=== PATIENT | male | born 1935 | race African-American/Black ===

== ENCOUNTER 2016-10-03 16:28 | Emergency (ER) | payer OTHER, MEDICARE ==
[2016-10-03] MEDS ORDERED: HYDRALAZINE HCL 10 MG TABLET PO ONE (18:14)
--- NOTE | 2016-10-03 18:54 | ER Document Report ---
ED General - General Time seen by provider: 18:45 Mode of Arrival: Medic Information source: Patient TRAVEL OUTSIDE OF THE U.S. IN LAST 30 DAYS: No - HPI Onset: Other - see HPI note Associated symptoms: None <ZOË PARSON - Last Filed: 10/03/16 19:44> <NADER RAYMOND - Last Filed: 10/04/16 01:04> - General Chief Complaint: Blood Pressure Problem Stated Complaint: BLOOD PRESSURE CONCERNS Notes: Patient is a 81-year-old male presents the emergency department from [facility] for hypertension. Patient states that he thought he was going for an eye exam to get glasses but instead he had his scrotum checked from a previous vasectomy procedure. Patient states he is confused of why he is here and did not want to come to the emergency department. Patient is oriented to place, year, month, and president. Patient states that his blood pressure is always high and usually runs in the 180s over 90s-100s. Patient does not want an IV or other care and instead would like to return to his home at [place]. Patient has no known allergies. Patient understands to return to the emergency department if he does want to receive care. Patient takes at this hydralazine for his hypertension and was given medicine emergency department. Patient's blood pressure has come down to his baseline with this medication. (ZOË PARSON) - Related Data Allergies/Adverse Reactions: No Known Allergies Allergy (Verified 01/05/14 08:24) Past Medical History - General Information source: Patient - Social History Lives with: [facility] Family History: None - Past Medical History Cardiac Medical History: Reports: Hx Hypertension Pulmonary Medical History: Reports: Hx Bronchitis, Hx COPD Endocrine Medical History: Reports: Hx Diabetes Mellitus Type 2 Past Surgical History: Reports: Hx Cholecystectomy, Hx Orthopedic Surgery - right ankle reduction, Hx Testicular Surgery - vasectomy - Immunizations Hx Diphtheria, Pertussis, Tetanus Vaccination: Yes <ZOË PARSON - Last Filed: 10/03/16 19:44> - Social History Smoking Status: Unknown if Ever Smoked Family History: Reviewed & Not Pertinent <NADER RAYMOND - Last Filed: 10/04/16 01:04> Review of Systems - Review of Systems Constitutional: No symptoms reported EENT: No symptoms reported Cardiovascular: No symptoms reported Respiratory: No symptoms reported Gastrointestinal: No symptoms reported Genitourinary: No symptoms reported Male Genitourinary: No symptoms reported Musculoskeletal: No symptoms reported Skin: No symptoms reported Hematologic/Lymphatic: No symptoms reported Neurological/Psychological: No symptoms reported -: Yes All other systems reviewed and negative <ZOË PARSON - Last Filed: 10/03/16 19:44> Physical Exam - Vital signs Interpretation: Hypertensive - General General appearance: Appears well, Alert - HEENT Head: Normocephalic, Atraumatic Eyes: Normal, Other - Left eye has a cataract Pupils: PERRL Mucous membranes: Moist - Respiratory Respiratory status: No respiratory distress Chest status: Nontender Breath sounds: Normal Chest palpation: Normal - Cardiovascular Rhythm: Regular Heart sounds: Normal auscultation Murmur: No - Abdominal Inspection: Normal Distension: No distension Bowel sounds: Normal Tenderness: Nontender Organomegaly: No organomegaly - Back Back: Normal, Nontender - Extremities General upper extremity: Normal inspection, Normal ROM, Normal strength General lower extremity: Normal inspection, Normal ROM, Normal strength - Neurological Neuro grossly intact: Yes Cognition: Normal Orientation: AAOx4 Sa[place]ra Coma Scale Eye Opening: Spontaneous [place] Coma Scale Verbal: Oriented [place] Coma Scale Motor: Obeys Commands Saundra Coma Scale Total: 15 Speech: Normal - Psychological Associated symptoms: Normal affect, Normal mood - Skin Skin Temperature: Warm Skin Moisture: Dry <ZOË PARSON - Last Filed: 10/03/16 19:44> Course <EBZOË - Last Filed: 10/03/16 19:44> <NADER RAYMOND - Last Filed: 10/04/16 01:04> - Re-evaluation Re-evalutation: 10/03 Patient has no complaints. Patient thought that he was going for his new glasses instead of coming to the emergency department. He is refusing IV and states his blood pressure is always high where it is currently and he does not need treatment for it. Patient is awake, alert, oriented to time person place and president. States that he will follow-up with his doctor. Family is present for this discussion. Stable for discharge back to his facility. Return if any worsening or concerning symptoms. (NADER RAYMOND) - Vital Signs Vital signs: Temp Pulse Resp BP Pulse Ox 98.2 F 98 18 195/126 H 99 10/03/16 19:40 10/03/16 19:40 10/03/16 19:40 10/03/16 19:40 10/03/16 19:40 (ZOË PARSON) (NADER RAYMOND) Discharge <ZOË PARSON - Last Filed: 10/03/16 19:44> <NADER RAYMOND - Last Filed: 10/04/16 01:04> - Discharge Clinical Impression: Hypertension Qualifiers: Hypertension type: essential hypertension Qualified Code(s): I10 - Essential ( primary) hypertension Condition: Stable Disposition: HOME-SNF (ED ONLY) Instructions: High Blood Pressure ([facility]) Scribe Attestation: 10/04/16 01:04 I personally performed the services described in the documentation, reviewed and edited the documentation which was dictated to the scribe in my presence, and it accurately records my words and actions. (NADER RAYMOND) Scribe Documentation - Scribe Written by Scribmatthew:: Zoë Parson 10/03/16 19:40 acting as scribe for :: Olga Lidia <ZOË PARSON - Last Filed: 10/03/16 19:44>
--- NOTE | 2016-10-03 18:55 | ER Document Report ---
ED Blood Pressure Problem - General Chief Complaint: Blood Pressure Problem Stated Complaint: BLOOD PRESSURE CONCERNS TRAVEL OUTSIDE OF THE U.S. IN LAST 30 DAYS: No - Related Data Allergies/Adverse Reactions: No Known Allergies Allergy (Verified 01/05/14 08:24) Past Medical History - Social History Family History: Reviewed & Not Pertinent - Past Medical History Cardiac Medical History: Reports: Hx Hypertension Pulmonary Medical History: Reports: Hx Bronchitis, Hx COPD Endocrine Medical History: Reports: Hx Diabetes Mellitus Type 2 Past Surgical History: Reports: Hx Cholecystectomy, Hx Orthopedic Surgery - right ankle reduction, Hx Testicular Surgery - vasectomy - Immunizations Hx Diphtheria, Pertussis, Tetanus Vaccination: Yes Physical Exam - Vital signs Vitals: BP Pulse Ox 218/126 H 98 10/03/16 17:08 10/03/16 17:08 Course - Vital Signs Vital signs: Temp Pulse Resp BP Pulse Ox 98 F 20 185/128 H 100 10/03/16 17:15 10/03/16 18:40 10/03/16 18:40 10/03/16 18:40 Discharge - Discharge Clinical Impression: Hypertension Condition: Stable Disposition: HOME-SNF (ED ONLY) Instructions: High Blood Pressure ([facility])
[2016-10-03 19:49] VITALS: BP 195/126
== END 2016-10-03 19:42 ==
LOC: ER 16:28
DX: I10 Essential (primary) hypertension (principal); J44.9 Chronic obstructive pulmonary disease, unspecified; E11.9 Type 2 diabetes mellitus without complications; Z90.49 Acquired absence of other specified parts of digestive tract
CPT/HCPCS: 99283; J3490

== ENCOUNTER 2017-04-06 10:08 | Emergency (ER) | payer OTHER, MEDICARE ==
--- NOTE | 2017-04-06 10:35 | ER Document Report ---
ED General - General Stated Complaint: WEAKNESS Time Seen by Provider: 04/06/17 10:22 Mode of Arrival: Medic Information source: Patient, Transfer Record Notes: This is an 82-year-old man who is wheelchair-bound and has multiple medical problems who is brought in to the emergency room because of weakness and concerns for his collar (reported that he appears "cano"). Patient is alert and answering questions and denies any pain. He states he feels fine. Initially, he has not wanted any blood draws states there is no problem. Patient has a history of hypertension (he states it is always elevated), chronic kidney disease, COPD, coronary artery disease, diabetes, blindness in the left eye (glaucoma). He is a resident of [facility] and he is nonambulatory (wheelchair bound). TRAVEL OUTSIDE OF THE [place] IN LAST 30 DAYS: No - HPI Onset: This morning Onset/Duration: Gradual Quality of pain: No pain Severity: None Pain Level: Denies Associated symptoms: None Exacerbated by: Denies Relieved by: Denies Similar symptoms previously: Yes Recently seen / treated by doctor: No - Related Data Allergies/Adverse Reactions: No Known Allergies Allergy (Verified 04/06/17 11:02) Home Medications: Current Home Medications Escitalopram Oxalate [Lexapro 10 mg Tablet] 10 mg PO QHS 04/06/17 [History] Melatonin 2 mg PO DAILY 04/06/17 [History] Past Medical History - General Information source: Patient - Social History Smoking Status: Never Smoker Cigarette use (# per day): No Chew tobacco use (# tins/day): No Frequency of alcohol use: None Drug Abuse: None Lives with: Family Family History: Reviewed & Not Pertinent Patient has suicidal ideation: No Patient has homicidal ideation: No - Past Medical History Cardiac Medical History: Reports: Hx Hypertension Pulmonary Medical History: Reports: Hx Bronchitis, Hx COPD Endocrine Medical History: Reports: Hx Diabetes Mellitus Type 2 Past Surgical History: Reports: Hx Cholecystectomy, Hx Orthopedic Surgery - right ankle reduction, Hx Testicular Surgery - vasectomy - Immunizations Hx Diphtheria, Pertussis, Tetanus Vaccination: Yes Review of Systems - Review of Systems Constitutional: See HPI. denies: Chills, Fever EENT: No symptoms reported Cardiovascular: No symptoms reported Respiratory: No symptoms reported Gastrointestinal: No symptoms reported Genitourinary: No symptoms reported Male Genitourinary: No symptoms reported Musculoskeletal: No symptoms reported Skin: No symptoms reported Hematologic/Lymphatic: No symptoms reported Neurological/Psychological: See HPI Physical Exam - Vital signs Vitals: Temp Resp Pulse Ox 97.7 F 16 98 04/06/17 10:20 04/06/17 10:20 04/06/17 10:20 Notes: Physical exam: GENERAL: 82-year-old man, lying in stretcher, alert and oriented, speaking, no distress. He is hypertensive (190/120) and he states that he is blood pressure is always high. HEAD: Atraumatic, normocephalic. EYES: Left eye blind secondary to glaucoma, extraocular muscles intact, sclera nonicteric. ENT: TMs normal, nares patent, oropharynx clear without exudates. Moist mucous membranes. NECK: Normal range of motion, supple without lymphadenopathy or JVD. LUNGS: Breath sounds clear to auscultation bilaterally and equal. No wheezes rales or rhonchi. HEART: Regular rate and rhythm without murmurs, rubs or gallops. ABDOMEN: Soft, normoactive bowel sounds. No tenderness to palpation. No guarding, no rebound. No masses appreciated. Rectal: Stool brown, sent for study EXTREMITIES: Normal range of motion, no pitting or edema. No clubbing or cyanosis. NEUROLOGICAL: Patient is blind in the left eye, otherwise moving all extremities. No gross focal motor weakness. Cranial nerves II through XII grossly intact, PSYCH: Normal mood, normal affect. SKIN: Warm, Dry, normal turgor, no rashes or lesions noted. Course - Vital Signs Vital signs: Temp Pulse Resp BP Pulse Ox 98.0 F 19 179/95 H 99 04/06/17 14:41 04/06/17 14:41 04/06/17 14:41 04/06/17 14:41 - Laboratory Result Diagrams: 04/06/17 10:36 04/06/17 10:36 Laboratory results interpreted by me: 04/06/17 04/06/17 04/06/17 10:36 10:36 10:36 RBC 4.33 L RDW 14.9 H Plt Count 148 L APTT 38.5 H BUN 22 H Glucose 200 H AST 16 L ALT 15 L - Diagnostic Test Radiology reviewed: Image reviewed, Reports reviewed - CT of the head shows no acute intra-cranial process. Chest x-ray is clear. - EKG Interpretation by Me Rate: Normal Rhythm: NSR - EKG shows normal sinus rhythm with a ventricular rate of 66, left anterior hemiblock, signs of LVH. No acute ST-T wave changes Discharge - Discharge Clinical Impression: Generalized weakness Condition: Stable Disposition: HOME, SELF-CARE Additional Instructions: Patient was followed on heart monitor and his heart rhythm is been good. His EKG looked good. Heart tests look good. Patient's chest x-ray was clear and his head CT showed no acute process. The patient's anemia studies were normal. Rectal exam revealed brown stool without any evidence of blood. The patient feels good at this time Recommendations: Continue current medicines, return to the ER for any concerns regarding pain, shortness of breath or worsening weakness. Follow-up with primary care doctor
[2017-04-06 10:56] LABS: ABSOLUTE BASOPHILS # (AUTO) 0.1 10^3/uL (0.0-0.2); ABSOLUTE EOSINOPHILS # (AUTO) 0.2 10^3/uL (0.0-0.6); ABSOLUTE LYMPHOCYTES (AUTO) 1.9 10^3/uL (0.5-4.7); ABSOLUTE MONOCYTES (AUTO) 0.5 10^3/uL (0.1-1.4); ABSOLUTE NEUT (AUTO) 4.2 10^3/uL (1.7-8.2); BASOPHILS % (AUTO) 0.8 % (0-2); EOSINOPHILS % (AUTO) 3.2 % (0-6); HEMATOCRIT 40.6 % (37.9-51.0); HGB HCT DIFFERENCE 1.4; LYMPHOCYTES % (AUTO) 28.2 % (13-45); MEAN CORPUSCULAR HEMOGLOBIN 32.2 pg (27.0-33.4); MEAN CORPUSCULAR HGB CONC 34.4 g/dL (32.0-36.0); MEAN CORPUSCULAR VOLUME 94 fl (80-97); MONOCYTES % (AUTO) 7.3 % (3-13); RED BLOOD COUNT 4.33 10^6/uL (4.35-5.55); RED CELL DISTRIBUTION WIDTH 14.9 % (11.5-14.0); SEGMENTED NEUTROPHILS % (AUTO) 60.5 % (42-78); WHITE BLOOD COUNT 6.9 10^3/uL (4.0-10.5)
[2017-04-06 11:03] LABS: PARTIAL THROMBOPLASTIN TIME 38.5 SEC (23.5-35.8)
[2017-04-06 11:06] LABS: PROTHROMBIN TIME 14.1 SEC (11.4-15.4)
[2017-04-06 11:16] LABS: ALANINE AMINOTRANSFERASE 15 U/L (21-72); ALBUMIN 4.3 g/dL (3.5-5.0); ALKALINE PHOSPHATASE 83 U/L (38-126); ANION GAP 14 (5-19); ASPARTATE AMINO TRANSFERASE 16 U/L (17-59); BILIRUBIN,DIRECT 0.3 mg/dL (0.0-0.4); BILIRUBIN,TOTAL 0.6 mg/dL (0.2-1.3); BLOOD UREA NITROGEN 22 mg/dL (7-20); CALCIUM 8.8 mg/dL (8.4-10.2); CARBON DIOXIDE 23 mmol/L (22-30); CHLORIDE 104 mmol/L (98-107); CREATINE KINASE 74 U/L (55-170); CREATININE RESULT 1.15 mg/dL (0.52-1.25); GLUCOSE 200 mg/dL (75-110); POTASSIUM 4.3 mmol/L (3.6-5.0); SODIUM 140.9 mmol/L (137-145); TOTAL PROTEIN 7.8 g/dL (6.3-8.2)
[2017-04-06 11:26] LABS: CREATINE KINASE MB 1.72 ng/mL (<4.55); TROPONIN I 0.016 ng/mL
--- NOTE | 2017-04-06 11:52 | RADIOLOGY REPORT (SQ) ---
EXAM DESCRIPTION: CT HEAD WITHOUT COMPLETED DATE/TIME: 04/06/2017 11:14 am REASON FOR STUDY: bed 2; Weakness COMPARISON: None. TECHNIQUE: Axial images acquired through the brain without intravenous contrast. Images reviewed wi th bone, brain and subdural windows. Images stored on PACS. All CT scanners at this facility use dose modulation, iterative reconstruction, and/or weight based d osing when appropriate to reduce radiation dose to as low as reasonably achievable (ALARA). [facility]: Dose Right [facility]: CareDose [facility]: Dose Right [facility]: Teradose 4D [facility]: [employer] RADIATION DOSE: Up-to-date CT equipment and radiation dose reduction techniques were employed. CTDIv ol: 64.6 mGy. DLP: 1163 mGy-cm. mGy. LIMITATIONS: None. FINDINGS: VENTRICLES: Prominent but not disproportionate to the degree of atrophy. CEREBRUM: Cortical atrophy is present. There are small areas of decreased attenuation in the white matter tracts. No masses. No hemorrhage. No midline shift. Normal cano/white matter differentiati on. No evidence for acute infarction. CEREBELLUM: No masses. No hemorrhage. No alteration of density. No evidence for acute infarction. EXTRAAXIAL SPACES: No fluid collections. No masses. ORBITS AND GLOBE: The left optic globe is somewhat collapsed and calcified. The right is normal. CALVARIUM: No fracture. PARANASAL SINUSES: No fluid or mucosal thickening. SOFT TISSUES: No mass or hematoma. OTHER: No other significant finding. IMPRESSION: 1. 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 2. Abnormal left optic globe, possibly result of prior trauma. TECHNICAL DOCUMENTATION: JOB ID: [id number] Quality ID # [id number]: Final reports with documentation of one or more dose reduction techniques (e.g., Au tomated exposure control, adjustment of the mA and/or kV according to patient size, use of iterative reconstruction technique) 2010 [employer]- All Rights Reserved
--- NOTE | 2017-04-06 12:35 | RADIOLOGY REPORT (SQ) ---
EXAM DESCRIPTION: CHEST SINGLE VIEW COMPLETED DATE/TIME: 04/06/2017 11:17 am REASON FOR STUDY: bed 2 weakness COMPARISON: 06/29/2016 EXAM PARAMETERS: NUMBER OF VIEWS: One view. TECHNIQUE: Single frontal radiographic view of the chest acquired. RADIATION DOSE: NA LIMITATIONS: None. FINDINGS: LUNGS AND PLEURA: No opacities, masses or pneumothorax. No pleural effusion. MEDIASTINUM AND HILAR STRUCTURES: No masses. Contour normal. HEART AND VASCULAR STRUCTURES: Heart size is borderline. There is no evidence of failure. BONES: No acute findings. HARDWARE: None in the chest. OTHER: No other significant finding. IMPRESSION: Borderline cardiomegaly with no chase CHF. TECHNICAL DOCUMENTATION: JOB ID: [id number]
--- NOTE | 2017-04-06 13:06 | EKG REPORT ---
SEVERITY:- ABNORMAL ECG - SINUS RHYTHM RIGHT BUNDLE BRANCH BLOCK + LAFB LVH WITH IVCD AND SECONDARY REPOL ABNRM : Confirmed by: Thad Wilkinson MD 06-Apr-2017 13:05:30
[2017-04-06] MEDS ORDERED: ISOSORBIDE DINITRATE 20 MG TABLET PO ONE (14:19)
[2017-04-06 14:46] VITALS: BP 179/95
== END 2017-04-06 14:45 | disposition home or self-care (01) ==
LOC: ER 10:08
DX: R53.1 Weakness (principal); I10 Essential (primary) hypertension; N18.9 Chronic kidney disease, unspecified; J44.9 Chronic obstructive pulmonary disease, unspecified; I25.10 Atherosclerotic heart disease of native coronary artery without angina pectoris; E11.9 Type 2 diabetes mellitus without complications; H54.42 Blindness, left eye, normal vision right eye; Z79.899 Other long term (current) drug therapy
CPT/HCPCS: 36415; 70450; 71010; 80053; 82272; 82550; 82553; 84484; 85025; 85610; 85730; 93005; 93010; 99285

== ENCOUNTER 2017-05-10 12:09 | Emergency (ER) | payer OTHER, MEDICARE ==
[2017-05-10] MEDS ORDERED: NORMAL SALINE 500 ML IV PRN ×2 (12:36→15:09)
--- NOTE | 2017-05-10 12:39 | ER Document Report ---
ED General - General Chief Complaint: Other Stated Complaint: COLD SWEATS Time Seen by Provider: 05/10/17 12:18 Mode of Arrival: Stretcher Information source: Patient Notes: This is an 82-year-old man with a history of Alzheimer's, coronary artery disease (stents, Plavix), hypertension, diabetes, COPD. Patient is brought in by EMS from [facility]. Staff at [facility] stated that the patient appeared cool, clammy and diaphoretic. Patient did vomit once during transport. The patient is resting in the stretcher and does answer questions. He states he ate breakfast (eggs, pancakes) without any difficulty. He currently denies headache, chest pain, shortness of breath, abdominal pain. TRAVEL OUTSIDE OF THE [place] IN LAST 30 DAYS: No - HPI Onset: Just prior to arrival Onset/Duration: Sudden Quality of pain: No pain Severity: None Pain Level: Denies Associated symptoms: Nausea, Vomiting Exacerbated by: Denies Relieved by: Denies Similar symptoms previously: No Recently seen / treated by doctor: No - Related Data Allergies/Adverse Reactions: No Known Allergies Allergy (Verified 05/10/17 13:35) Past Medical History - General Information source: Patient, Transfer Record - Social History Smoking Status: Never Smoker Cigarette use (# per day): No Chew tobacco use (# tins/day): No Frequency of alcohol use: None Drug Abuse: None Lives with: Family Family History: Reviewed & Not Pertinent Patient has suicidal ideation: No Patient has homicidal ideation: No - Past Medical History Cardiac Medical History: Reports: Hx Hypertension Pulmonary Medical History: Reports: Hx Bronchitis, Hx COPD Endocrine Medical History: Reports: Hx Diabetes Mellitus Type 2 Past Surgical History: Reports: Hx Cholecystectomy, Hx Orthopedic Surgery - right ankle reduction, Hx Testicular Surgery - vasectomy - Immunizations Hx Diphtheria, Pertussis, Tetanus Vaccination: Yes Review of Systems - Review of Systems Constitutional: denies: Chills, Fever EENT: No symptoms reported Cardiovascular: No symptoms reported Respiratory: No symptoms reported Gastrointestinal: See HPI Genitourinary: No symptoms reported Male Genitourinary: No symptoms reported Musculoskeletal: No symptoms reported Skin: No symptoms reported Hematologic/Lymphatic: No symptoms reported Neurological/Psychological: No symptoms reported Physical Exam - Vital signs Vitals: Pulse Resp BP Pulse Ox 81 16 118/71 94 05/10/17 12:17 05/10/17 12:17 05/10/17 12:17 05/10/17 12:17 Notes: Physical exam: GENERAL: 82-year-old man, alert and oriented 3. He is lying supine in the stretcher with his eyes closed. He does answer questions appropriately. HEAD: Atraumatic, normocephalic. EYES: Pupils equal round and reactive to light, extraocular movements intact, sclera anicteric, conjunctiva are normal. ENT: TMs normal, nares patent, oropharynx clear without exudates. Moist mucous membranes. NECK: Normal range of motion, supple without obvious mass or JVD. LUNGS: Breath sounds clear to auscultation bilaterally and equal. No wheezes rales or rhonchi. HEART: Regular rate and rhythm without murmurs, rubs or gallops. ABDOMEN: Soft, normoactive bowel sounds. No tenderness to palpation. No guarding, no rebound. No masses appreciated. Back: Skin clear, no decubiti Rectal: Brown stool, sent for study EXTREMITIES: Normal range of motion, no pitting or edema. No clubbing or cyanosis. NEUROLOGICAL: Normal speech, moving all extremities. PSYCH: Normal mood, normal affect. SKIN: Warm, Dry, normal turgor, no rashes or lesions noted. Course - Re-evaluation Re-evalutation: 05/10/17 18:34 The patient was observed several hours in the ER. He was given some IV fluids. He continued to remain asymptomatic. An obstructive series showed a lot of stool. We did give him an enema. He has had good output. On repeat examination, he has bowel sounds, his abdomen is soft and the patient is nontender. I have spoken to the patient and the son at the bedside with the plan of going back to the care home. I have advised him if there is any further problems, we will bring him into the hospital for admission. Otherwise , right now he is without symptoms. His blood pressure has gradually, but he is not been on any of his blood pressure medicines. We have restarted his Carvedilol and Isosorbide. 05/10/17 19:25 BP 178/117. Patient is asymptomatic at this time. Given that he is asymptomatic and has been recently restarted on BP meds, I wish to avoid over- correcting the BP and causing hypotension. The plan will be to discharge back home with f/u with Doc at [facility]. - Vital Signs Vital signs: Temp Pulse Resp BP Pulse Ox 97.5 F 81 22 H 178/117 H 96 05/10/17 12:19 05/10/17 12:17 05/10/17 19:16 05/10/17 19:16 05/10/17 19:16 - Laboratory Result Diagrams: 05/10/17 12:28 05/10/17 12:28 Laboratory results interpreted by me: 05/10/17 05/10/17 12:28 12:28 Hgb 13.4 L RDW 14.7 H BUN 22 H Est GFR (Non-Af Amer) 56 L Glucose 242 H ALT 13 L - Diagnostic Test Radiology reviewed: Image reviewed, Reports reviewed - Increased stool abdominal x-rays show - EKG Interpretation by Me Rate: Normal Rhythm: NSR - EKG shows normal sinus rhythm ventricular rate of 73, with a left anterior hemiblock, right bundle lower type pattern, no acute ST-T wave changes. Discharge - Discharge Clinical Impression: Vomiting with nausea, Constipation Condition: Stable Disposition: HOME, SELF-CARE Additional Instructions: X-rays in the ER showed a lot of constipation. Patient was treated with some IV fluids and given a soapsuds enema with good output. He was observed several hours on the heart monitor and his electrolytes, renal function, cardiac enzymes have remained good. Recommendations: Continue all medicines. Return to the ER for any complaints of pain or any persistent vomiting or any concerns that Mr. Ritchie does not feel good or look good.
[2017-05-10 12:41] LABS: ABSOLUTE BASOPHILS # (AUTO) 0.1 10^3/uL (0.0-0.2); ABSOLUTE EOSINOPHILS # (AUTO) 0.3 10^3/uL (0.0-0.6); ABSOLUTE LYMPHOCYTES (AUTO) 1.6 10^3/uL (0.5-4.7); ABSOLUTE MONOCYTES (AUTO) 0.8 10^3/uL (0.1-1.4); ABSOLUTE NEUT (AUTO) 6.8 10^3/uL (1.7-8.2); BASOPHILS % (AUTO) 0.7 % (0-2); EOSINOPHILS % (AUTO) 2.8 % (0-6); HEMOGLOBIN 13.4 g/dL (13.5-17.0); HGB HCT DIFFERENCE -0.8; LYMPHOCYTES % (AUTO) 16.4 % (13-45); MEAN CORPUSCULAR HEMOGLOBIN 30.5 pg (27.0-33.4); MEAN CORPUSCULAR HGB CONC 32.7 g/dL (32.0-36.0); MEAN CORPUSCULAR VOLUME 93 fl (80-97); MONOCYTES % (AUTO) 8.7 % (3-13); RED BLOOD COUNT 4.39 10^6/uL (4.35-5.55); RED CELL DISTRIBUTION WIDTH 14.7 % (11.5-14.0); SEGMENTED NEUTROPHILS % (AUTO) 71.4 % (42-78); WHITE BLOOD COUNT 9.6 10^3/uL (4.0-10.5)
[2017-05-10 13:07] LABS: ALBUMIN 4.1 g/dL (3.5-5.0); ALKALINE PHOSPHATASE 80 U/L (38-126); ANION GAP 15 (5-19); ASPARTATE AMINO TRANSFERASE 22 U/L (17-59); BLOOD UREA NITROGEN 22 mg/dL (7-20); CALCIUM 9.2 mg/dL (8.4-10.2); CARBON DIOXIDE 26 mmol/L (22-30); CHLORIDE 101 mmol/L (98-107); CREATININE RESULT 1.24 mg/dL (0.52-1.25); GLUCOSE 242 mg/dL (75-110); SODIUM 142.1 mmol/L (137-145)
[2017-05-10 13:08] LABS: ALANINE AMINOTRANSFERASE 13 U/L (21-72); BILIRUBIN,DIRECT 0.4 mg/dL (0.0-0.4); BILIRUBIN,TOTAL 0.8 mg/dL (0.2-1.3); CREATINE KINASE 66 U/L (55-170); TOTAL PROTEIN 7.6 g/dL (6.3-8.2)
[2017-05-10 13:18] LABS: CREATINE KINASE MB 1.92 ng/mL (<4.55); TROPONIN I 0.03 ng/mL
--- NOTE | 2017-05-10 14:35 | RADIOLOGY REPORT (SQ) ---
EXAM DESCRIPTION: ACUTE ABDOMEN SERIES COMPLETED DATE/TIME: 05/10/2017 2:15 pm REASON FOR STUDY: vomiting COMPARISON: None. NUMBER OF VIEWS: Three views. TECHNIQUE: Frontal chest, supine abdomen and upright/decubitus abdomen radiographic images acquired. LIMITATIONS: None. FINDINGS: CHEST: Minimal chronic interstitial change left base. No acute findings. FREE AIR: None. No abnormal gas collections. BOWEL GAS PATTERN: Nonobstructive pattern. No dilated loops or air fluid levels. Severe constipation with extremely large quantity of fecal material descending colon and sigmoid - impaction CALCIFICATIONS: No suspicious calcifications. HARDWARE: None in the abdomen. SOFT TISSUES: No gross mass or suggestion of organomegaly. BONES: No acute fracture. No worrisome bone lesions. OTHER: No other significant finding. IMPRESSION: Mild nonspecific ileus. Extremely large quantity fecal material descending colon and si gmoid -fecal impaction. TECHNICAL DOCUMENTATION: JOB ID: [id number] [employer]- All Rights Reserved
[2017-05-10] MEDS ORDERED: ISOSORBIDE DINITRATE 20 MG TABLET PO ONE (18:32)
[2017-05-10] MEDS ORDERED: CARVEDILOL 12.5 MG TABLET PO ONE (18:32)
--- NOTE | 2017-05-10 19:49 | EKG REPORT ---
SEVERITY:- ABNORMAL ECG - SINUS RHYTHM RIGHT BUNDLE BRANCH BLOCK AND LAFB. LVH WITH IVCD AND SECONDARY REPOL ABNRM : Confirmed by: Thad Wilkinson MD 10-May-2017 19:48:40
[2017-05-10 20:29] VITALS: BP 152/97
== END 2017-05-10 20:38 | disposition home or self-care (01) ==
LOC: ER 12:09
DX: R11.2 Nausea with vomiting, unspecified (principal); K59.00 Constipation, unspecified; G30.9 Alzheimer's disease, unspecified; F02.80 Dementia in other diseases classified elsewhere, unspecified severity, without behavioral disturbance, psychotic disturbance, mood disturbance, and anxiety; I25.10 Atherosclerotic heart disease of native coronary artery without angina pectoris; I10 Essential (primary) hypertension; E11.9 Type 2 diabetes mellitus without complications; J44.9 Chronic obstructive pulmonary disease, unspecified
CPT/HCPCS: 93005; 99284; 96360; 36415; 82553; 82550; 85025; 82272; 80053; 84484; 74022; 93010; J7040